=== PATIENT | male | born 1995 | race Caucasian/White ===

== ENCOUNTER 2018-03-19 04:36 | Emergency (ER) | payer BC, OTHER ==
[2018-03-19] MEDS: HYDROCODONE/APAP (10/325) TAB PO (05:03)
[2018-03-19] MEDS: DIAZEPAM 5 MG/ML SYG IM (05:06)
== END 2018-03-19 05:43 | disposition home or self-care (01) ==
LOC: FTE 04:36
DX: S76.211A Strain of adductor muscle, fascia and tendon of right thigh, initial encounter (principal); X58.XXXA Exposure to other specified factors, initial encounter; Y92.310 Basketball court as the place of occurrence of the external cause
CPT/HCPCS: 96372; 99284-25